=== PATIENT | female | born 1980 | race Caucasian/White ===

== ENCOUNTER 2019-09-20 18:36 | Emergency (ER) | payer MEDICARE, MEDICAID, SELFPAY ==
--- NOTE | ~2019-09-20 | XR_ITS ---
EXAMINATION: XR chest 2V EXAM DATE: 09/20/2019 19:17 INDICATION: Cough, shortness of breath, congestion. TECHNIQUE: Cervical spine frontal, lateral, lateral swimmers, and open-mouth odontoid projections. C omparison is made to prior examination from 09/03/2018. FINDINGS: The lungs are clear. There are no pleural effusions. The cardiomediastinal silhouette is within normal limits. There is no pneumothorax suspected. The bones and soft tissues are unremarkab le. IMPRESSION: No acute cardiopulmonary findings. Reviewed, dictated and finalized at location A.
--- NOTE | ~2019-09-20 | CT_ITS ---
EXAMINATION: CTA chest PE protocol EXAM DATE: 09/20/2019 20:59 INDICATION: Shortness of breath. TECHNIQUE: Spiral CTA of the chest (pulmonary arteries) was performed with 100 cc Omnipaque 350 intr avenous contrast injection. Images were acquired during the pulmonary arterial phase. Coronal maxi mum intensity projection 3D-reconstructions were created by the technologist on dedicated workstation . Axial, coronal and sagittal reformatted images were reviewed. The dose-length product (DLP) for t his examination was 1033.69 mGy-cm. The exposure was tailored according to patient size (auto mA ex posure control), and iterative reconstruction (ASIR) was used as additional dose reduction technique. There is no prior study for comparison. FINDINGS: Pulmonary arteries are well opacified and without intraluminal filling defects. No thora cic aortic dissection. The lungs are clear. There are no pleural or pericardial effusions. Trach eobronchial tree is patent. There is no mediastinal, hilar or axillary lymphadenopathy. There is no pneumothorax. Heart normal in size. No evidence of coronary arterial calcification. Upper abd omen is unremarkable. There is thoracic spondylosis without osteoblastic or osteolytic lesions iden tified. IMPRESSION: 1. No acute cardiopulmonary findings. Reviewed, dictated and finalized at location A.
[2019-09-20 18:48] VITALS: BP 156/99; PULSE 137; RESP 28; TEMP 37.2; O2SAT 100
--- NOTE | 2019-09-20 18:50 | ECG_ITS ---
Measurements Intervals [place] Rate: 135 P: 44 WI: 138 QRS: 16 QRSD: 104 T: 46 QT: 310 QTc: 466 Interpretive Statements SINUS TACHYCARDIA DELAYED PRECORDIAL R/S TRANSITION LOW QRS VOLTAGE IN PRECORDIAL LEADS ABNORMAL ECG Electronically Signed On 09-20-2019 19:44:47 CDT by [place] Cardona D.O.
[2019-09-20 19:02] LABS: Basophils Percent Auto 0.6 % (0.2-1.2); Eosinophils Absolute Auto 0.1 K/mm3 (0-0.3); Hematocrit 38.8 % (37.0-47.0); Hemoglobin 12.6 g/dL (12.0-15.0); Immature Granulocyte Absolute 0.02 K/mm3 (0.00-0.031); Immature Granulocyte Percent A 0.4 % (0-0.5); Lymphocytes Absolute Auto 0.59 K/mm3 (0.9-3.2); Lymphocytes Percent Auto 10.8 % (18.3-44.2); Mean Corpuscular HGB Conc 32.5 g/dl (32-36); Mean Corpuscular Hemoglobin 28.9 pg (26-34); Mean Platelet Volume 11.3 fl (7.4-10.4); Monocytes Absolute Auto 0.5 K/mm3 (0.1-0.6); Monocytes Percent Auto 8.3 % (2.6-8.5); Neutrophils Absolute Auto 4.2 K/mm3 (1.3-6.7); Neutrophils Percent Auto 77.9 % (45.5-73.1); Platelet Count Result 173 k/mm3 (150-375); Red Blood Count 4.36 M/mm3 (4.2-5.4); Red Cell Distribution Width 13.9 % (11.5-14.5); White Blood Count 5.4 K/mm3 (4.5-10.0)
--- NOTE | 2019-09-20 19:04 | ED.SOB ---
HPI - SOB/Dyspnea General Chief Complaint: Shortness of Breath/Dyspnea Stated Complaint: TROUBLE BREATHING Time Seen by Provider: 09/20/19 19:04 Source: patient and RN notes reviewed Mode of arrival: other Limitations: no limitations History of Present Illness HPI Narrative: Pt is a 39 y/o female who presents to the ED with c/o SOB that began today while at school. She notes that she has been taking shallow breaths to avoid coughing. Pt notes that she has 3 kids at home. Pt notes that she has been around possible sick contacts. She notes that she went to her rheumatolgist about a month ago for an US to rule out a DVT in her RLE, but she was unable to get the US. Pt states that she has right lower leg edema for the past month. She notes that she was recommended to wear a compression sock. Pt has a hx of peripheral neuropathy and she notes that her RLE pain is similar to her neuropathy. She denies any recent long plane travels. Pt also reports pain with inspiration, dry cough producing green phlegm for the past 2-3 days, and near syncope, but denies post nasal drip and nasal discharge. MD elicited complaint: shortness of breath Pertinent past history: diabetes Onset (ago): hour(s) Timing: constant Known history of: diabetes Associated symptoms: pain with inspiration, cough (dry, producing green phlegm for the past 2-3 days) and other (near syncope, right lower leg edema) Related Data Home oxygen amount: none Home Medications Medication Instructions Recorded Confirmed metformin mg PO 09/20/19 metoprolol succinate PO 09/20/19 Allergies Allergy/AdvReac Type Severity Reaction Status Date / Time miconazole Allergy Mild hives Verified 09/03/18 12:07 Review of Systems Review of Systems: All systems reviewed & are unremarkable except as noted in HPI and below ENT: Denies nasal discharge and Denies post nasal drip Cardiovascular: Cardiovascular: Reports leg edema (right lower) Respiratory: Respiratory: Reports cough (dry, producing green phlegm for the past 2-3 days), Reports pain on inspiration and Reports dyspnea Neurologic: Reports syncope (near) [facility] Past Medical History Medical History (Updated 09/20/19 @ 23:55 by Clayton Gary MD) Hidradenitis suppurativa of left axilla Hidradenitis suppurativa of right axilla HPV (human papilloma virus) infection HTN (hypertension) Hyperlipidemia Migraines PCOS (polycystic ovarian syndrome) Peripheral neuropathy induced hypertension Sleep apnea Systemic lupus Type II diabetes mellitus Surgical History Surgical History (Updated 09/20/19 @ 19:59 by Marylin Morales) History of orthopedic surgery left shoulder surgery Hx of adenoidectomy Hx of tonsillectomy Family History Family History (Updated 10/13/17 @ 08:16 by DOCTOR UNKNOWN) Mother Family history of gastrointestinal disorder Father Family history of Parkinson's disease, Onset Age: 59 Social History Social History (Updated 09/20/19 @ 20:00 by Marylin Morales) Smoking status: Former smoker Tobacco type: cigarettes Smoking end date: 07/14/10 Alcohol intake: current Alcohol use details: Pt will drink EtOH about twice a year. Gender identity (if verbalized by the patient): Female Exam Narrative: Exam Narrative: General appearance: Well-developed, well-nourished Skin: Normal color Head: Normocephalic, nontraumatic Eyes: Clear conjunctiva ENT: Oropharynx normal, ears normal, nose normal Neck: Supple, nontender Chest and respiratory: Airway patent, no respiratory distress, no accessory muscle use Heart: Regular rate/rhythm Abdomen: Soft, nontender, no organomegaly, quiet bowel sounds Vascular: Normal peripheral pulses, normal capillary refill. Musculoskeletal: Normal range of motion, nontender back, right lower leg showed no localized tenderness, no erythema, no rash, intact pedal pulse. Neurologic: Alert and oriented ?3, DRY WALL PLASTERER is normal as tested, no gross motor defic
[2019-09-20 19:14] LABS: Blood Urea Nitrogen 10 mg/dL (7-17); Calcium 9.8 mg/dL (8.4-10.2); Carbon Dioxide 26 mmol/L (22-30); Chloride 99 mmol/L (98-107); Estimated CRCL calculation 110 ml/min; Estimated Glomerular Filt Rate > 60; Glucose 137 mg/dL (65-105); Potassium 4.2 mmol/L (3.4-5.0); Sodium 138 mmol/L (137-145)
[2019-09-20 19:21] VITALS: PULSE 124; O2SAT 98
[2019-09-20 19:30] LABS: Alanine Aminotransferase 33 U/L (4-35); Albumin Level 4.6 g/dL (3.5-5.1); Alkaline Phosphatase 68 U/L (38-126); Aspartate Amino Transferase 69 U/L (14-36); Bilirubin,Total 0.6 mg/dL (0.2-1.3)
[2019-09-20 19:42] LABS: Troponin I < 0.012 ng/mL (0.000-0.034)
[2019-09-20 19:49] LABS: D Dimer 0.27 ug/mL (<0.48)
[2019-09-20] MEDS: ENOXAPARIN 80 MG/0.8 ML SYRINGE 130 MG SUB-Q (20:04)
[2019-09-20 20:17] VITALS: BP 137/97; PULSE 132; RESP 12; TEMP 37.3; O2SAT 98
[2019-09-20 21:00] VITALS: BP 121/74; PULSE 127; RESP 13; O2SAT 96
[2019-09-20 21:09] LABS: Alveolar/Arterial O2 Gradient 33.9 mmHg; Base Excess ABG 0.3 mEq/l (+/-2.0); Device ROOM AIR; Fractional Inspired Oxygen 21 %; HCO3 ABG 24.2 mEq/l (22.0-26.0); Modified Allen's Test Pass; Oxygen Content ABG 16.5 %vol (16.0-22.0); Oxyhemoglobin 93.2 % THb (90.0-100.0); PCO2 ABG 36.7 mmHg (35.0-45.0); PO2 ABG 71.9 mmHg (80.0-100.0); PO2 FiO2 Ratio Arterial Blood 3.42 %; Site Drawn RIGHT RADIAL; Total Hemoglobin 12.6 g/dL (12.0-18.0); pH ABG 7.437 (7.350-7.450)
[2019-09-20 22:23] VITALS: BP 140/92; PULSE 131; RESP 18; O2SAT 98
[2019-09-20] MEDS: HYDROMORPHONE HCL 1 MG/ML INJ 0.5 MG IV PUSH (22:51)
[2019-09-20] MEDS: ONDANSETRON INJ 4 MG/2 ML VIAL IV PUSH (22:52)
[2019-09-20 23:21] VITALS: TEMP 37.3
[2019-09-21] MEDS: LORAZEPAM INJ 2 MG/ML VIAL 1 MG IV PUSH (00:04)
[2019-09-21 00:10] VITALS: BP 131/81; PULSE 122; RESP 21; O2SAT 97
[2019-09-21 00:40] VITALS: BP 122/74; PULSE 111; RESP 20; TEMP 37.3; O2SAT 98
== END 2019-09-21 00:43 | disposition home or self-care (01) ==
PROVIDERS: Emergency Provider Emergency Medicine; PCP Family Medicine
DX: J06.9 Acute upper respiratory infection, unspecified (principal); R00.0 Tachycardia, unspecified; I10 Essential (primary) hypertension; E78.5 Hyperlipidemia, unspecified; E28.2 Polycystic ovarian syndrome; E11.42 Type 2 diabetes mellitus with diabetic polyneuropathy; G47.30 Sleep apnea, unspecified; Z87.891 Personal history of nicotine dependence
CPT/HCPCS: 36415; 36600; 71046; 71275; 80048; 80076; 81025; 82805; 84484; 85025; 85380; 87804; 93005; 96372; 96374; 96375; 99284; J1170; J1650; J2060; J2405; Q9967

== ENCOUNTER 2020-05-14 17:30 | Emergency (ER) | payer MEDICARE, OTHER, MEDICAID, SELFPAY ==
[2020-05-14 17:32] VITALS: BP 115/80; PULSE 100; RESP 18; TEMP 36.4; O2SAT 99
--- NOTE | 2020-05-14 18:26 | ED.GENADULT ---
HPI - General Adult General Chief complaint: Wound/Laceration Stated complaint: finger lac Time Seen by Provider: 05/14/20 17:36 Source: patient Mode of arrival: ambulatory Limitations: no limitations History of Present Illness HPI narrative: Patient is a 39-year-old female who presents with lacerations to the distal phalanxes of the right thumb and index finger that occurred just prior to arrival while preparing dinner patient notes mild aching pain patient is unsure as to her tetanus status. Related Data Home Medications Medication Instructions Recorded Confirmed metformin mg PO 09/20/19 metoprolol succinate PO 09/20/19 Allergies Allergy/AdvReac Type Severity Reaction Status Date / Time miconazole Allergy Mild hives Verified 05/14/20 17:40 Review of Systems Review of Systems: All systems reviewed & are unremarkable except as noted in HPI and below PMFSH Past Medical History Medical History Hidradenitis suppurativa of left axilla Hidradenitis suppurativa of right axilla HPV (human papilloma virus) infection HTN (hypertension) Hyperlipidemia Migraines PCOS (polycystic ovarian syndrome) Peripheral neuropathy induced hypertension Sleep apnea Systemic lupus Type II diabetes mellitus Surgical History Surgical History History of orthopedic surgery left shoulder surgery Hx of adenoidectomy Hx of tonsillectomy Family History Family History (Updated 10/13/17 @ 08:16 by DOCTOR UNKNOWN) Mother Family history of gastrointestinal disorder Father Family history of Parkinson's disease, Onset Age: 59 Social History Social History Smoking status: Former smoker Tobacco type: cigarettes Smoking end date: 07/14/10 Alcohol intake: current Gender identity (if verbalized by the patient): Female Exam Narrative: Exam Narrative: GENERAL: Well-appearing, well-nourished, and in no acute distress. HEAD: Normocephalic, atraumatic. EYES: PERRLA and EOMI. ENT: Nares clear, no rhinorrhea or epistaxis. Mucous membranes moist. EXTREMITIES: Normal range of motion. No edema. Patient with 2 very small linear less than half centimeter well approximated lacerations that do not repair suturing will have glue just to provide a barrier for healing and is felt appropriate for discharge home SKIN: Warm, dry, no rash. NEURO: No focal deficits. Alert and oriented x3. Neurovascularly intact. Capillary refill less than 2 seconds PSYCH: Normal mood and affect. Course Vital Signs Vital signs: Vital Signs Temperature 97.6 F 05/14/20 17:32 Pulse Rate 100 05/14/20 17:32 Respiratory Rate 18 05/14/20 17:32 Blood Pressure 115/80 05/14/20 17:32 Pulse Oximetry 99 05/14/20 17:32 Temperature 97.6 F 05/14/20 17:32 Pulse Rate 100 05/14/20 17:32 Respiratory Rate 18 05/14/20 17:32 Blood Pressure 115/80 05/14/20 17:32 Pulse Oximetry 99 05/14/20 17:32 Procedures Laceration Laceration 1: Date: 05/14/20 Time: 18:27 Site: upper extremity Side (If applicable): right Size (cm): 0.5 Description: linear Depth: simple, single layer Pre-repair: wound explored ====== Skin Level ====== Skin layer closed with: dermabond ====== Subcutaneous Layer ====== ====== Muscle Layer ====== ====== Tendon Layer ====== Laceration 2: Date: 05/14/20 Time: 18:28 Site: upper extremity Side (If applicable): right Size (cm): 0.5 Description: linear Depth: simple, single layer Pre-repair: wound explored ====== Skin Level ====== Skin layer closed with: dermabond ====== Subcutaneous Layer ====== ====== Muscle Layer ====== ====== Tendon Layer ====== Medic
[2020-05-14] MEDS: TETANUS,DIPHTHERIA,AC PERTUSSIS ADULT (0.5 ML) BOOSTRIX IM (18:43)
[2020-05-14 18:49] VITALS: BP 141/71; PULSE 74; O2SAT 98
== END 2020-05-14 18:50 | disposition home or self-care (01) ==
PROVIDERS: Emergency Provider Emergency Medicine; PCP Family Medicine
DX: S61.011A Laceration without foreign body of right thumb without damage to nail, initial encounter (principal); S61.210A Laceration without foreign body of right index finger without damage to nail, initial encounter; E11.42 Type 2 diabetes mellitus with diabetic polyneuropathy; I10 Essential (primary) hypertension; E78.5 Hyperlipidemia, unspecified; E28.2 Polycystic ovarian syndrome; G47.30 Sleep apnea, unspecified; M32.9 Systemic lupus erythematosus, unspecified; Z87.891 Personal history of nicotine dependence; W26.0XXA Contact with knife, initial encounter; Y93.G1 Activity, food preparation and clean up; Z23 Encounter for immunization
CPT/HCPCS: 12001; 90471; 90715; 99282

== ENCOUNTER 2020-09-28 06:11 | Emergency (ER) | payer MEDICARE, OTHER, MEDICAID, SELFPAY ==
[2020-09-28 06:15] VITALS: BP 136/93; PULSE 80; RESP 18; TEMP 36.8; O2SAT 100
[2020-09-28 06:26] VITALS: BP 136/93; PULSE 80; RESP 20; TEMP 36.8; O2SAT 100
--- NOTE | 2020-09-28 06:32 | PC.NURSE ---
EDMD presented to bedside. Pt presents to ED with complaints of generalized body aches. Pt states pain to bilateral feet is worse and increases when lying down. Pt denies all other pain and discomfort this time and is alert and oriented x4. Breathing noted to be even and unlabored. spouse is present at bedside.
--- NOTE | 2020-09-28 06:36 | PC.NURSE ---
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 Pt also denies fall, injury and trauma to BLE. Pt sitting at bedside and is alert and oriented x4. Personal items, belongings and call button within reach. Pt advised to press call button for assistance.
--- NOTE | 2020-09-28 06:38 | ED.GENADULT ---
HPI - General Adult General Chief complaint: Extremity Problem,Nontraumatic Stated complaint: neuropathy pain Time Seen by Provider: 09/28/20 06:30 History of Present Illness HPI narrative: Patient 40-year-old female presents to emergency department with chief complaint of joint aching. Patient states she has history of rheumatoid arthritis she finished a steroid taper approximately 2 weeks ago and now has continual pain. Patient states that she has pain down into her feet states that it is worsened with movement and improved with rest the patient states that usually this is improved with steroids but states that she is also very uncomfortable and needs something to help her rest for the next couple of days Related Data Home Medications Medication Instructions Recorded Confirmed metformin mg PO 09/20/19 metoprolol succinate PO 09/20/19 duloxetine [Cymbalta] mg PO 09/28/20 hydroxychloroquine 100 mg 09/28/20 sulfasalazine 09/28/20 Allergies Allergy/AdvReac Type Severity Reaction Status Date / Time miconazole Allergy Mild hives Verified 05/14/20 17:40 Review of Systems Review of Systems: Narrative: A 10 system review of systems was completed on the patient and is negative except for what is stated in the HPI. Nursing and ancillary documentation was reviewed. [facility] Past Medical History Medical History Hidradenitis suppurativa of left axilla Hidradenitis suppurativa of right axilla HPV (human papilloma virus) infection HTN (hypertension) Hyperlipidemia Migraines PCOS (polycystic ovarian syndrome) Peripheral neuropathy induced hypertension Sleep apnea Systemic lupus Type II diabetes mellitus Surgical History Surgical History History of orthopedic surgery left shoulder surgery Hx of adenoidectomy Hx of tonsillectomy Family History Family History Mother Family history of gastrointestinal disorder Father Family history of Parkinson's disease, Onset Age: 59 Social History Social History Smoking status: Former smoker Tobacco type: cigarettes Smoking end date: 07/14/10 Alcohol intake: current Gender identity (if verbalized by the patient): Female Exam Narrative: Exam Narrative: GENERAL: Well-appearing, well-nourished, and in no acute distress. HEAD: Normocephalic, atraumatic. EYES: PERRLA and EOMI. ENT: Nares clear, no rhinorrhea or epistaxis. Mucous membranes moist. NECK: Supple. CHEST: Clear to auscultation. No respiratory distress. HEART: Regular rate and rhythm. No murmur heard. Normal peripheral pulses. ABDOMEN: Soft, nontender, nondistended, normal active bowel sounds. EXTREMITIES: Normal range of motion. No edema. SKIN: Warm, dry, no rash. NEURO: No focal deficits. Alert and oriented x3. PSYCH: Normal mood and affect. Course Vital Signs Vital signs: Vital Signs Temperature 36.8 C 09/28/20 06:15 Pulse Rate 80 09/28/20 06:15 Respiratory Rate 18 09/28/20 06:15 Blood Pressure 136/93 H 09/28/20 06:15 Pulse Oximetry 100 09/28/20 06:15 Temperature 36.8 C 09/28/20 06:26 Pulse Rate 80 09/28/20 06:26 Respiratory Rate 20 09/28/20 06:26 Blood Pressure 136/93 H 09/28/20 06:26 Pulse Oximetry 100 09/28/20 06:26 Medical Decision Making Vital Signs Vital Signs: Vital Signs Temperature 36.8 C 09/28/20 06:15 Pulse Rate 80 09/28/20 06:15 Respiratory Rate 18 09/28/20 06:15 Blood Pressure 136/93 H 09/28/20 06:15 Pulse Oximetry 100 09/28/20 06:15 Temperature 36.8 C 09/28/20 06:26 Pulse Rate 80 09/28/20 06:26 Respiratory Rate 20 09/28/20 06:26 Blood Pressure 136/93 H 09/28/20 06:26 Pulse Oximetry 100 09/28/20 06:26 Discharge Plan Discharge
[2020-09-28] MEDS: traMADol HCL (*CRX) 50 MG TABLET PO (06:42)
[2020-09-28] MEDS: methylPREDNISolone SOD SUCC 125 MG VIAL IM (06:43)
--- NOTE | 2020-09-28 06:49 | PC.NURSE ---
Medications administered. Pt has no complaints or concerns at this time. Will reassess. Spouse remains at bedside. Pt advised to press call button for assistance.
== END 2020-09-28 07:06 | disposition home or self-care (01) ==
PROVIDERS: Emergency Provider Emergency Medicine; PCP Family Medicine
DX: M25.50 Pain in unspecified joint (principal); M06.9 Rheumatoid arthritis, unspecified; I10 Essential (primary) hypertension; E78.5 Hyperlipidemia, unspecified; E28.2 Polycystic ovarian syndrome; E11.42 Type 2 diabetes mellitus with diabetic polyneuropathy; G47.30 Sleep apnea, unspecified; M32.9 Systemic lupus erythematosus, unspecified; Z79.84 Long term (current) use of oral hypoglycemic drugs
CPT/HCPCS: 96372; 99283; A9270; J2930

== ENCOUNTER 2020-10-03 07:07 | Emergency (ER) | payer MEDICARE, OTHER, MEDICAID, SELFPAY ==
--- NOTE | 2020-10-03 07:11 | ED.EXTPRO ---
HPI - Extremity Problem General Chief complaint: Extremity Problem,Nontraumatic Stated complaint: hand/foot pain, neuropathy Time Seen by Provider: 10/03/20 07:09 Source: patient Mode of arrival: ambulatory Limitations: no limitations History of Present Illness HPI Narrative: Patient is a 40-year-old female with a history of rheumatoid arthritis and psoriatic arthritis who returns to the emergency department for evaluation of acute on chronic worsening extremity pain. Patient does report tingling pain in her feet which is preventing her from sleeping. She states she feels exhausted and she came to the emergency department for treatment of this pain. She denies any redness, swelling, numbness. No weakness. Pain is rated as moderate in nature. She has tried to follow-up with her promotional advertising assistant and has not had any luck. Patient states her only issue is pain. She denies fever, chills, nausea, vomiting, chest pain or shortness of breath. No cough. No recent fall or injury. Related Data Home Medications Medication Instructions Recorded Confirmed metformin mg PO 09/20/19 metoprolol succinate PO 09/20/19 duloxetine [Cymbalta] mg PO 09/28/20 hydroxychloroquine 100 mg 09/28/20 sulfasalazine 09/28/20 Allergies Allergy/AdvReac Type Severity Reaction Status Date / Time miconazole Allergy Mild hives Verified 10/03/20 07:18 Review of Systems Review of Systems: Narrative: CONSTITUTIONAL: Denies fever, chills, or sweats. CARDIOVASCULAR: Denies chest pain RESPIRATORY: Denies cough or dyspnea. GASTROINTESTINAL: Denies abdominal pain, nausea SKIN: Denies rash or itching. MUSCULOSKELETAL: Denies back pain, reports chronic joint pain, reports tingling pain NEUROLOGIC: Denies headache PMFSH Past Medical History Medical History Hidradenitis suppurativa of left axilla Hidradenitis suppurativa of right axilla HPV (human papilloma virus) infection HTN (hypertension) Hyperlipidemia Migraines PCOS (polycystic ovarian syndrome) Peripheral neuropathy induced hypertension Sleep apnea Systemic lupus Type II diabetes mellitus Surgical History Surgical History History of orthopedic surgery left shoulder surgery Hx of adenoidectomy Hx of tonsillectomy Family History Family History Mother Family history of gastrointestinal disorder Father Family history of Parkinson's disease, Onset Age: 59 Social History Social History Smoking status: Former smoker Tobacco type: cigarettes Smoking end date: 07/14/10 Alcohol intake: current Gender identity (if verbalized by the patient): Female Exam Narrative: Exam Narrative: GENERAL: Awake, alert, conversant HEAD: Normocephalic, atraumatic. EYES: PERRLA and EOMI. ENT: Nares clear, no rhinorrhea or epistaxis. Mucous membranes moist. NECK: Supple. CHEST: No respiratory distress, breathing even and non labored HEART: Regular rate, sinus rhythm ABDOMEN:Non distended, non tender EXTREMITIES: Normal range of motion. No edema. No erythema or calf tenderness bilaterally. SKIN: Warm, dry, no rash. NEURO:No focal deficits. Alert and oriented x3 Course Vital Signs Vital signs: Vital Signs Pulse Rate 78 10/03/20 07:15 Respiratory Rate 16 10/03/20 07:15 Blood Pressure 150/101 H 10/03/20 07:15 Pulse Oximetry 100 10/03/20 07:15 Pulse Rate 78 10/03/20 07:15 Respiratory Rate 16 10/03/20 07:15 Blood Pressure 150/101 H 10/03/20 07:15 Pulse Oximetry 100 10/03/20 07:15 MDM - Extremity (Nontraumatic) MDM Narrative Medical decision making narrative: Patient presents for acute on chronic exacerbation of pain. After speaking with the patient at length, it seems all of her issues are pain related. There is no injury.
[2020-10-03 07:15] VITALS: BP 150/101; PULSE 78; RESP 16; O2SAT 100
[2020-10-03] MEDS: MORPHINE SULFATE INJ (*CRX) 10 MG/ML AMP IM (07:55)
[2020-10-03 07:59] VITALS: TEMP 36.9
== END 2020-10-03 08:00 | disposition home or self-care (01) ==
LOC: ANHED 07:39
PROVIDERS: Emergency Provider Emergency Medicine; PCP Family Medicine
DX: M79.2 Neuralgia and neuritis, unspecified (principal); M06.9 Rheumatoid arthritis, unspecified; L40.50 Arthropathic psoriasis, unspecified; I10 Essential (primary) hypertension; E78.5 Hyperlipidemia, unspecified; E28.2 Polycystic ovarian syndrome; E11.42 Type 2 diabetes mellitus with diabetic polyneuropathy; G47.30 Sleep apnea, unspecified; M32.9 Systemic lupus erythematosus, unspecified; Z87.891 Personal history of nicotine dependence; Z79.84 Long term (current) use of oral hypoglycemic drugs
CPT/HCPCS: 96372; 99283; J2270

== ENCOUNTER 2021-04-09 15:13 | Emergency (ER) | payer MEDICARE, MEDICAID, SELFPAY ==
[2021-04-09 15:19] VITALS: BP 150/99; PULSE 95; RESP 18; TEMP 36.3; O2SAT 100
[2021-04-09 15:41] LABS: Basophils Absolute Auto 0.1 K/mm3 (0.0-0.1); Basophils Percent Auto 0.6 % (0.2-1.2); Eosinophils Absolute Auto 0.3 K/mm3 (0-0.3); Eosinophils Percent Auto 2.5 % (0-4.4); Hematocrit 41.7 % (37.0-47.0); Hemoglobin 14.1 g/dL (12.0-15.0); Immature Granulocyte Absolute 0.07 K/mm3 (0.00-0.031); Immature Granulocyte Percent A 0.6 % (0-0.5); Lymphocytes Absolute Auto 3.07 K/mm3 (0.9-3.2); Lymphocytes Percent Auto 25.6 % (18.3-44.2); Mean Corpuscular HGB Conc 33.8 g/dl (32-36); Mean Corpuscular Hemoglobin 31.2 pg (26-34); Mean Corpuscular Volume 92.3 fl (80-100); Mean Platelet Volume 11.8 fl (7.4-10.4); Monocytes Absolute Auto 0.5 K/mm3 (0.1-0.6); Monocytes Percent Auto 4.4 % (2.6-8.5); Neutrophils Percent Auto 66.3 % (45.5-73.1); Platelet Count Result 231 k/mm3 (150-375); Red Blood Count 4.52 M/mm3 (4.2-5.4); Red Cell Distribution Width 13.2 % (11.5-14.5)
[2021-04-09 15:51] LABS: Ethanol < 10 mg/dL (<10)
[2021-04-09 15:52] LABS: Alanine Aminotransferase 19 U/L (4-35); Albumin Level 4.9 g/dL (3.5-5.1); Alkaline Phosphatase 55 U/L (38-126); Anion Gap 13 mmol/L (8-16); Aspartate Amino Transferase 23 U/L (14-36); Bilirubin,Total 0.6 mg/dL (0.2-1.3); Blood Urea Nitrogen 14 mg/dL (7-17); Calcium 9.4 mg/dL (8.4-10.2); Carbon Dioxide 21 mmol/L (22-30); Chloride 109 mmol/L (98-107); Estimated CRCL calculation 89 ml/min; Estimated Glomerular Filt Rate > 60; Glucose 135 mg/dL (65-110); Potassium 3.6 mmol/L (3.4-5.0); Sodium 143 mmol/L (137-145)
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
--- NOTE | 2021-04-09 16:56 | PC.NURSE ---
Pt attempting to urinate at this time.
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
[2021-04-09 17:35] LABS: Add Urine Microscopic? YES; Appearance Urine Clear (Clear); Bilirubin Urine Negative (Negative); Blood Urine Negative (Negative); Color Urine Amber (Yellow); Glucose Urine UA Negative (Negative); Ketones Urine Trace mg/dL (Negative); Leukocyte Esterase Ur Negative LEU/UL (Negative); Mucus Urine Few /lpf; Nitrate Urine Negative (Negative); Protein Urine 2+ mg/dL (Negative); RBC Urine 21-50 /hpf (0-2); Squamous Epithelial Cell Urine Many /hpf (Few); Urobilinogen Urine Negative mg/dL (<2.0)
[2021-04-09 17:41] LABS: Barbiturate Screen Urine Negative (Negative); Benzodiazepines Screen Urine Negative (Negative)
[2021-04-09 17:53] LABS: Amphetamine Screen Urine Negative (Negative); Cocaine Screen Urine Negative (Negative); Methadone Screen Urine Negative (Negative); Opiate Screen Urine Negative (Negative); Phencyclidine Screen Urine Negative (Negative)
[2021-04-09 18:28] LABS: Free T4 Free Thyroxine 0.87 ng/mL (0.78-2.19)
[2021-04-09 18:34] LABS: Cannabinoid Screen Urine Positive (Negative)
--- NOTE | 2021-04-09 20:01 | PC.NURSE ---
Pt requesting to leave prior to Crisis interview. SOLIS Lopez aware. Pt is medically cleared. OK per Jessica to discharge patient and cancel crisis Attempted to call crisis to inform that we no longer are in need of their services but had to leave a message.
--- NOTE | 2021-04-09 20:16 | PC.NURSE ---
Crisis called to confirm they have received my call, no longer in need of services.
== END 2021-04-09 20:52 | disposition home or self-care (01) ==
PROVIDERS: Physician Assistant; Emergency Provider Emergency Medicine
DX: F43.0 Acute stress reaction (principal); I10 Essential (primary) hypertension; E78.5 Hyperlipidemia, unspecified; E28.2 Polycystic ovarian syndrome; E11.42 Type 2 diabetes mellitus with diabetic polyneuropathy; G47.30 Sleep apnea, unspecified; M32.9 Systemic lupus erythematosus, unspecified; Z79.84 Long term (current) use of oral hypoglycemic drugs; Z79.899 Other long term (current) drug therapy
CPT/HCPCS: 36415; 80053; 80307; 81001; 81025; 84439; 84443; 85025; 99284

== ENCOUNTER → 2021-05-22 08:31 | Outpatient (CLI) | payer MEDICARE, MEDICAID, SELFPAY ==
--- NOTE | ~2021-05-22 | XR_ITS ---
EXAMINATION: XR sacroiliac joints min 3V INDICATION: Polyarthralgia, CT TECHNIQUE: Three views of the sacroiliac joints are obtained. COMPARISON: None available FINDINGS: Bone alignment is normal. There is no fracture. There is no abnormal sclerosis or erosion o f the sacroiliac joints. Surgical clips are noted in the left pelvis. IMPRESSION: 1. No acute osseous abnormality. Reviewed, dictated and finalized at location B. ITAL LIAISON
--- NOTE | ~2021-05-22 | XR_ITS ---
EXAMINATION: XR hip BI wo pelvis INDICATION: Polyarthralgia, fatigue TECHNIQUE: Two views of each hip are obtained. COMPARISON: 05/22/2021 FINDINGS: Bone alignment is normal. There is no fracture. The soft tissues are unremarkable. Surgical clips are noted in the left pelvis. IMPRESSION: 1. Unremarkable hip radiographs. 2. Possible displaced tubal ligation clip. Reviewed, dictated and finalized at location B. ETIC SURVEY DIRECTOR
--- NOTE | ~2021-05-22 | XR_ITS ---
EXAMINATION: XR lumbar spine 2-3V DATE: 05/22/2021 09:45 INDICATION: Polyarthralgia and 50 cc TECHNIQUE: Anteroposterior and lateral views of the lumbar spine, and cone-down lateral view of the l umbosacral junction were obtained. COMPARISON: None. FINDINGS: There is no fracture, dislocation, or subluxation. The vertebral body heights are maintaine d. There is severe loss of intervertebral disc space height at L2-3 and L3-4 and mild loss of interve rtebral disc space height at L4-5 and L5-S1. Small degenerative osteophytes project from the anterior endplates of multiple vertebral bodies. Moderate facet osteoarthritis is noted in the lower lumbar s pine. There are surgical clips in the left pelvis. IMPRESSION: 1. Severe lumbar spondylosis. Reviewed, dictated and finalized at location B. ARCH INTERN
--- NOTE | ~2021-05-22 | XR_ITS ---
EXAMINATION: XR hand RT 2V INDICATION: Right hand pain TECHNIQUE: Two views of the right hand are obtained. COMPARISON: None available FINDINGS: There is no fracture, dislocation, or subluxation. The bones, soft tissues, and joint space s are normal. IMPRESSION: 1. No acute osseous abnormality. Reviewed, dictated and finalized at location B. LTY [employer]
--- NOTE | ~2021-05-22 | XR_ITS ---
EXAMINATION: XR foot LT 2V INDICATION: Polyarthralgia, fatigue TECHNIQUE: Two views of the left foot are obtained. COMPARISON: None available FINDINGS: There is no fracture, dislocation, or subluxation. Mild osteoarthritis is present in the fi rst metatarsophalangeal joint as well as multiple interphalangeal joints. The soft tissues are unrema rkable. IMPRESSION: 1. No acute osseous abnormality. Reviewed, dictated and finalized at location B. GER BACKGROUND
--- NOTE | ~2021-05-22 | XR_ITS ---
EXAMINATION: XR foot RT 2V INDICATION: Polyarthralgia, fatigue TECHNIQUE: Two views of the right foot are obtained. COMPARISON: None available FINDINGS: There is no fracture, dislocation, or subluxation. Mild osteoarthritis is present in the fi rst metatarsophalangeal joint as well as multiple interphalangeal joints. The soft tissues are unrema rkable. IMPRESSION: 1. No acute osseous abnormality. Reviewed, dictated and finalized at location B. OGRAPHY ASSISTANT
--- NOTE | ~2021-05-22 | XR_ITS ---
EXAMINATION: XR hand LT 2V INDICATION: Polyarthralgia, fatigue TECHNIQUE: Two views of the left hand are obtained. COMPARISON: None available FINDINGS: There is no fracture, dislocation, or subluxation. The bones, soft tissues, and joint space s are normal. IMPRESSION: 1. No acute osseous abnormality. Reviewed, dictated and finalized at location B. 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
== END ==
PROVIDERS: Visit Provider Physician Assistant
DX: M25.50 Pain in unspecified joint (principal); R53.83 Other fatigue; M47.896 Other spondylosis, lumbar region
CPT/HCPCS: 72100; 72202; 73120; 73521; 73620

== ENCOUNTER 2021-07-14 18:18 | Emergency (ER) | payer MEDICARE, MEDICAID, SELFPAY ==
[2021-07-14 18:21] VITALS: BP 154/96; PULSE 79; RESP 20; TEMP 35.7; O2SAT 100
== END 2021-07-15 04:00 | disposition left against medical advice (07) ==
LOC: ANHED 21:19
DX: Z53.21 Procedure and treatment not carried out due to patient leaving prior to being seen by health care provider (principal)
CPT/HCPCS: 99199

== ENCOUNTER 2021-07-15 08:01 | Emergency (ER) | payer MEDICARE, MEDICAID, SELFPAY ==
[2021-07-15 08:29] VITALS: BP 152/102; PULSE 79; RESP 16; TEMP 36.4; O2SAT 100
--- NOTE | 2021-07-15 12:10 | ED.BACK ---
HPI - Back Pain/Injury General Chief Complaint: Back Pain/Injury Stated Complaint: Back Pain x2 m Time Seen by Provider: 07/15/21 12:10 History of Present Illness HPI Narrative: Patient is a 41-year-old female who comes to the ED today complaining of right-sided low back pain radiating to back of right leg for the last 2 months. The pain is fairly constant. Seems to be getting worse. No mechanism of injury. Denies any bowel or bladder incontinence. No saddle paresthesia. No fevers. She is being followed by her chiropractor. She is trying to get into see her primary care doctor to order an MRI. Has a history of rheumatoid arthritis. Has been taking ibuprofen and Tylenol. She is here today asking for some pain relief. No chance of . Related Data Home Medications Medication Instructions Recorded Confirmed metformin mg PO 09/20/19 metoprolol succinate PO 09/20/19 duloxetine [Cymbalta] mg PO 09/28/20 hydroxychloroquine 100 mg 09/28/20 sulfasalazine 09/28/20 Allergies Allergy/AdvReac Type Severity Reaction Status Date / Time miconazole Allergy Mild hives Verified 07/15/21 08:33 Review of Systems Constitutional: Constitutional: Reports as per HPI, Denies fever(s), Denies night sweats and Denies weakness Cardiovascular: Cardiovascular: Denies chest pain, Denies edema, Denies leg edema, Denies dyspnea and Denies orthopnea Respiratory: Respiratory: Denies cough and Denies dyspnea Gastrointestinal: Gastrointestinal: Denies abdominal pain, Denies constipation, Denies diarrhea, Denies nausea and Denies vomiting Musculoskeletal: Musculoskeletal: Denies abnormal gait, Reports back pain, Denies numbness and Denies tingling Comments: See HPI Neurologic: Denies Abnormal speech present, Denies abnormal gait, Denies numbness, Denies tingling and Denies weakness Psychiatric: Psychiatric: Denies homicidal ideation and Denies suicidal ideation [facility] Past Medical History Medical History (Updated 07/15/21 @ 12:19 by Damian Osborne PA-C) Hidradenitis suppurativa of left axilla Hidradenitis suppurativa of right axilla HPV (human papilloma virus) infection HTN (hypertension) Hyperlipidemia Migraines PCOS (polycystic ovarian syndrome) Peripheral neuropathy induced hypertension Sleep apnea Systemic lupus Type II diabetes mellitus Surgical History Surgical History History of orthopedic surgery left shoulder surgery Hx of adenoidectomy Hx of tonsillectomy Family History Family History Mother Family history of gastrointestinal disorder Father Family history of Parkinson's disease, Onset Age: 59 Social History Social History Smoking status: Former smoker Tobacco type: cigarettes Smoking end date: 07/14/10 Alcohol intake: current Alcohol use details: Pt will drink EtOH about twice a year. Substance use type: marijuana Gender identity (if verbalized by the patient): Female Exam Const: General: cooperative, healthy appearing, comfortable, no acute distress, well developed, alert, awake and Physically active Orientation/consciousness: patient oriented x3 HENMT: Head: normal to inspection, normocephalic and atraumatic Ears: external ears normal General nose exam: Normal external nose present Eyes: Pupils: Equal, round and reactive pupils present EOM: EOMs intact bilaterally Neck: Neck: normal visual inspection Chest: Chest palpation & inspection: normal inspection of the chest and no tenderness Resp: Effort & Inspection: normal respiratory effort and able to speak in complete sentences Auscultation: clear to auscultation bilaterally Cardio: Rate: regular rate Rhythm: regular rhythm GI: Inspection: normal to inspection GI Palp: No abdominal tenderness : General: Yes no CVA tende
[2021-07-15 12:12] VITALS: BP 151/111; PULSE 74; TEMP 36.6; O2SAT 95
[2021-07-15] MEDS: KETOROLAC 30 MG/ML VIAL (*BKC) IM (12:54)
[2021-07-15] MEDS: HYDROcodone/acetaminophen (*CRX) 5-325 MG TABLET 1 TAB PO (12:54)
[2021-07-15 13:02] VITALS: BP 153/104; PULSE 79; RESP 14; O2SAT 100
== END 2021-07-15 13:03 | disposition home or self-care (01) ==
LOC: ANHED 12:30
PROVIDERS: Emergency Provider Emergency Medicine
DX: M54.41 Lumbago with sciatica, right side (principal); I10 Essential (primary) hypertension; E78.5 Hyperlipidemia, unspecified; E28.2 Polycystic ovarian syndrome; E11.42 Type 2 diabetes mellitus with diabetic polyneuropathy; G47.30 Sleep apnea, unspecified; M32.9 Systemic lupus erythematosus, unspecified; Z87.891 Personal history of nicotine dependence
CPT/HCPCS: 96372; 99283; A9270; J1885

== ENCOUNTER 2022-08-03 15:14 | Emergency (ER) | payer MEDICARE, MEDICAID, SELFPAY ==
--- NOTE | 2022-08-03 16:13 | PC.NURSE ---
PT CALLED FOR ROOM, LEFT D/T WAIT TIME
== END 2022-08-03 16:14 | disposition left against medical advice (07) ==
DX: Z53.21 Procedure and treatment not carried out due to patient leaving prior to being seen by health care provider (principal)
CPT/HCPCS: 99199

== ENCOUNTER 2022-12-04 18:16 | Emergency (ER) | payer MEDICARE, MEDICAID, SELFPAY ==
[2022-12-04 18:28] VITALS: BP 165/98; PULSE 103; RESP 16; TEMP 36.8; O2SAT 99
--- NOTE | 2022-12-04 18:45 | ED.LOWEXIN ---
HPI - Extremity Injury (Lower) General Chief Complaint: Unspecified Stated Complaint: Feet Pain Time Seen by Provider: 12/04/22 18:55 Mode of arrival: ambulatory Limitations: no limitations History of Present Illness HPI Narrative: 42-year-old female with history of rheumatoid arthritis, lupus presents with concern for chronic back pain, bilateral feet pain. She reports she was on medications for her chronic illnesses, she decided to stop them to see what her baseline symptoms were. She also recently started a new job at [employer] were she is on her feet. She reports she has missed the last 2 days due to her pain. Reports she has been taking Tylenol ibuprofen. She denies any redness, warmth in any extremity. She denies weakness in any extremity. She denies loss of bowel or bladder function, perianal anesthesia, abdominal pain or fever MD complaint: other (Chronic pain) Related Data Allergies Allergy/AdvReac Type Severity Reaction Status Date / Time miconazole Allergy Mild hives Verified 12/04/22 18:40 Review of Systems Review of Systems: CONSTITUTIONAL: Denies malaise, chills, sweats, or fever. CARDIOVASCULAR: Denies chest pain, palpitations, or edema. RESPIRATORY: Denies cough or dyspnea. GASTROINTESTINAL: Denies abdominal pain, nausea, vomiting SKIN: Denies redness, warmth, rash MUSCULOSKELETAL: Reports chronic back pain, bilateral lower extremity pain NEUROLOGIC: Denies numbness, weakness All systems reviewed & are unremarkable except as noted in HPI and below PMFSH Past Medical History Medical History (Updated 12/04/22 @ 19:02 by Harika Dill NP) Hidradenitis suppurativa of left axilla Hidradenitis suppurativa of right axilla HPV (human papilloma virus) infection HTN (hypertension) Hyperlipidemia Migraines PCOS (polycystic ovarian syndrome) Peripheral neuropathy induced hypertension Sleep apnea Systemic lupus Type II diabetes mellitus Surgical History Surgical History History of orthopedic surgery left shoulder surgery Hx of adenoidectomy Hx of tonsillectomy Family History Family History Mother Family history of gastrointestinal disorder Father Family history of Parkinson's disease, Onset Age: 59 Social History Social History Smoking status: Former smoker Tobacco type: cigarettes Smoking end date: 07/14/10 Alcohol intake: current Alcohol use details: Pt will drink EtOH about twice a year. Substance use type: marijuana Gender identity (if verbalized by the patient): Female Comments At time of signature, agree with nursing past medical, surgical, social and family history. There is no relevant family history pertinent to the presenting complaint Exam Narrative: GENERAL: Well-appearing, well-nourished, and in no acute distress. HEAD: Normocephalic, atraumatic. EYES: PERRLA and EOMI. NECK: Supple. No lymphadenopathy. CHEST: Clear to auscultation. No respiratory distress. HEART: Regular rate and rhythm. Distal pulses palpable and equal, cap refill <3 seconds ABDOMEN: Soft, nontender, nondistended, normal active bowel sounds, no palpable or pulsatile masses. No CVA tenderness MUSCULOSKELETAL: Normal range of motion and strength in all extremities; 5/5 strength with hip flexion and extension, dorsiflexion and extension, knee flexion and extension, plantar flexion and extension. Normal sensation in dermatomal distributions with sensitivity to light touch and pain. No midline back tenderness to palpation. No paraspinal tenderness. Transfers from sitting to standing. SKIN: Warm, dry, no rash. No ecchymosis, erythema, open wounds to back. NEURO: No focal deficits. Alert and oriented x3. Normal gait. PSYCH: Normal mood and affect Course Course Emergency Course: Patient is aware of diagnosis,
== END 2022-12-04 19:08 | disposition home or self-care (01) ==
PROVIDERS: Emergency Provider Nurse Practitioner; PCP Family Medicine
DX: M79.671 Pain in right foot (principal); G89.29 Other chronic pain; M79.672 Pain in left foot; I10 Essential (primary) hypertension; E78.2 Mixed hyperlipidemia; E28.2 Polycystic ovarian syndrome; E11.42 Type 2 diabetes mellitus with diabetic polyneuropathy; M32.9 Systemic lupus erythematosus, unspecified; Z87.891 Personal history of nicotine dependence
CPT/HCPCS: 99213; G0463

== ENCOUNTER 2023-02-24 17:45 | Emergency (ER) | payer MEDICARE, MEDICAID, SELFPAY ==
--- NOTE | 2023-02-24 18:15 | PC.NURSE ---
Pt walked out before being seen, mother then came to desk asking for her to be seen and was told we cannot hold her against her will. Mother advised that patient can come back of her own will if she chooses.
== END 2023-02-24 18:15 | disposition left against medical advice (07) ==
PROVIDERS: PCP Family Medicine
DX: M25.559 Pain in unspecified hip (principal)
CPT/HCPCS: 99199

== ENCOUNTER 2023-10-12 01:04 | Emergency (ER) | payer MEDICARE, SELFPAY ==
[2023-10-12] VITALS (44 sets, daily range): BP systolic 140–189; BP diastolic 85–146; PULSE 60–91; RESP 12–25; TEMP 36.6; O2SAT 97–100
--- NOTE | ~2023-10-12 | CT_ITS ---
EXAMINATION: CT lumbar spine wo con DATE: 10/12/2023 03:39 INDICATION: Low back pain. TECHNIQUE: Computed tomography (CT) of the lumbar spine was performed without intravenous contrast. A utomated exposure control and iterative reconstruction technique were employed. The dose-length produ ct was 990.22 mGy-cm. COMPARISON: Lumbar spine radiographs 05/22/2021 FINDINGS: There are two 2 mm stones in left kidney. There is 12 degrees dextro scoliosis of lumbar sp ine. There is mild chronic anterior wedging of T11 vertebral body. There is moderately decreased disc height at T10-T11, mildly decreased disc height at T11-T12, severely decreased disc height at L2-L3 and L3-L4, and moderately decreased disc height at L4-L5. The following disc levels are specifically discussed: L1-L2: The disc is bulging. There is severe right and moderate left facet joint osteoarthritis. There is mild left neural foraminal stenosis. There is mild central canal stenosis. L2-L3: The disc is bulging. There is severe bilateral facet joint osteoarthritis. There is moderate b ilateral neural foraminal stenosis. There is moderate central canal stenosis. L3-L4: The disc is bulging. There is severe bilateral facet joint osteoarthritis. There is mild bilat eral neural foraminal stenosis. There is mild central canal stenosis. L4-L5: The disc is bulging. There is severe bilateral facet joint osteoarthritis. There is moderate r ight and mild left neural foraminal stenosis. There is mild central canal stenosis. L5-S1: The disc is bulging. There is severe bilateral facet joint osteoarthritis. There is mild bilat eral neural foraminal stenosis. There is mild central canal stenosis. IMPRESSION: 1. Severe lumbar spondylosis. 2. Lumbar dextroscoliosis. Reviewed, dictated and finalized at location E.
--- NOTE | 2023-10-12 02:11 | ED.BACK ---
HPI - Back Pain/Injury General Chief Complaint: Back Pain/Injury Stated Complaint: back pain Time Seen by Provider: 10/12/23 01:53 Source: patient Mode of arrival: other (ambulatory; police custody) History of Present Illness HPI Narrative: Patient presents with low back pain. She states this is chronic. Patient has been unable to take medication as she is homeless. She is currently in police custody. Patient is also complaining of bilateral feet pain and toenail pain. She is requesting that her toenails be pulled off as there are any starting to fall off. She previously took Lyrica for analgesia. Her pain is 8 out of 10. Related Data Allergies Allergy/AdvReac Type Severity Reaction Status Date / Time miconazole Allergy Mild hives Verified 12/04/22 18:40 PMFSH Past Medical History Medical History (Updated 10/13/23 @ 11:30 by Patricia Wood MD) Hidradenitis suppurativa of left axilla Hidradenitis suppurativa of right axilla HPV (human papilloma virus) infection HTN (hypertension) Hyperlipidemia Migraines Neuropathy PCOS (polycystic ovarian syndrome) Peripheral neuropathy Plantar fasciitis induced hypertension Psoriatic arthritis Rheumatoid arthritis Sleep apnea Systemic lupus Type II diabetes mellitus Surgical History Surgical History History of orthopedic surgery left shoulder surgery Hx of adenoidectomy Hx of tonsillectomy Family History Family History Mother Family history of gastrointestinal disorder Father Family history of Parkinson's disease, Onset Age: 59 Social History Social History Smoking status: Former smoker Tobacco type: cigarettes Smoking end date: 07/14/10 Alcohol intake: current Alcohol use details: Pt will drink EtOH about twice a year. Substance use type: marijuana Gender identity (if verbalized by the patient): Female Exam Narrative: GENERAL: well-nourished, appears to have lost weight compared to profile photo HEAD: Normocephalic, atraumatic. EYES: Non injected, non icteric ENT: Nares clear, no rhinorrhea or epistaxis. NECK: Supple. CHEST: Speaking in complete sentences. No respiratory distress. HEART: Regular rate and rhythm. Bilateral DP pulses. ABDOMEN: Soft, nondistended. Back: Patient demonstrates flexion and extension of back and rotational movement. She does have midline tenderness to palpation of multiple lumbar spine but without bony step-offs EXTREMITIES: Normal range of motion. No edema. Right great toenail nearly complete off, elevated distally and along lateral edges but base remains. Tissue underneath visualized and without evidence of infection. Subungal hematoma under L great toenail. SKIN: Warm, dry. NEURO: No focal deficits. Alert and oriented x3. PSYCH: Intermittently tearful. Course Vital Signs Vital signs: Vital Signs Temperature 97.9 F 10/12/23 01:05 Pulse Rate 83 10/12/23 01:05 Respiratory Rate 18 10/12/23 01:05 Blood Pressure 183/102 H 10/12/23 01:05 Pulse Oximetry 100 10/12/23 01:05 Oxygen Delivery Room Air 10/12/23 01:05 Temperature 97.9 F 10/12/23 01:05 Pulse Rate 63 10/12/23 06:46 Respiratory Rate 17 10/12/23 06:46 Blood Pressure 157/112 H 10/12/23 06:46 Pulse Oximetry 100 10/12/23 06:46 Oxygen Delivery Room Air 10/12/23 01:05 MDM - Back Pain/Injury MDM Narrative Medical decision making narrative: Patient presents with acute on chronic low back pain. She is also complaining of bilateral toenail/toe pain and requesting removal of toenails. In the emergency department she is afebrile with vital signs that show hypertension. She does have midline tenderness to palpation of multiple lumbar spine on multiple reproducible attempts. For this reason we will pursue CT imaging. In vishnu
[2023-10-12] MEDS: ACETAMINOPHEN 500 MG TABLET 1000 MG PO (03:44)
[2023-10-12] MEDS: KETOROLAC 30 MG/ML VIAL (*BKC) 15 MG IM (03:44)
[2023-10-12] MEDS: IBUPROFEN 400 MG TABLET 800 MG PO (05:18)
== END 2023-10-12 06:53 ==
PROVIDERS: Emergency Provider Student in an Organized Health Care Education/Training Program; PCP Family Medicine
DX: S90.112A Contusion of left great toe without damage to nail, initial encounter (principal); E11.42 Type 2 diabetes mellitus with diabetic polyneuropathy; M54.50 Low back pain, unspecified; I10 Essential (primary) hypertension; E78.5 Hyperlipidemia, unspecified; M32.9 Systemic lupus erythematosus, unspecified; Z87.891 Personal history of nicotine dependence; Z59.00 Homelessness unspecified
CPT/HCPCS: 72131; 81025; 96372; 99284; A9270; J1885